=== PATIENT | female | born 1990 | race Caucasian/White ===

== ENCOUNTER 2017-06-30 22:24 | Emergency (ER) | payer MEDICAID ==
[2017-06-30 22:41] VITALS: TEMP 97.7
--- NOTE | 2017-06-30 22:48 | ED PDOC ---
Lower Extremity Pain/Injury Time Seen by Provider: 06/30/17 22:47 Chief Complaint (Nursing): Lower Extremity Problem/Injury Chief Complaint (Provider): leg pain History Per: Patient Additional Complaint(s): 27-year-old female with history of chronic left hip pain presents with exacerbation of pain that started today. Patient has had chronic pain to left hip for over 5 years. She denies recent trauma or injury. Patient took dose of Naprosyn earlier but this did not help which prompted ED visit. PMD: none Past Medical History Reviewed: Historical Data, Nursing Documentation, Vital Signs Vital Signs: Last Vital Signs Temp 97.7 F 06/30/17 22:37 Pulse 74 06/30/17 22:37 Resp 18 06/30/17 22:37 BP 173/105 H 06/30/17 22:37 Pulse Ox 100 06/30/17 22:37 - Medical History PMH: Chronic Pain (left hip) - Surgical History Surgical History: No Surg Hx - Family History Family History: States: No Known Family Hx - Living Arrangements Living Arrangements: With Family - Social History Current smoker - smoking cessation education provided: No Alcohol: None Drugs: Denies - Home Medications Home Medications: Ambulatory Orders Medication Instructions Recorded Meloxicam [Mobic] 15 mg PO DAILY #30 tab 06/30/17 predniSONE [Prednisone] 20 mg PO BID #10 tab 06/30/17 - Allergies Allergies/Adverse Reactions: Allergies Allergy/AdvReac Type Severity Reaction Status Date / Time No Known Allergies Allergy Verified 06/30/17 22:37 Wells Criteria for PE - Wells Criteria for Pulmonary Embolism Clinical Signs and Symptoms of DVT: No P.E is #1 Diagnosis, or Equally Likely: No Heart Rate >100: No Immobilization at least 3 days;Surgery previous 4 weeks: No Previous, objectively diagnosed PE or DVT: No Hemoptysis: No Malignancy w/treatment within 6 months, or palliative: No Total Score: 0 Review of Systems ROS Statement: Except As Marked, All Systems Reviewed And Found Negative Constitutional: Negative for: Fever Musculoskeletal: Positive for: Other (Left hip pain) Physical Exam - Reviewed Nursing Documentation Reviewed: Yes Vital Signs Reviewed: Yes - Physical Exam Appears: Positive for: Well, Non-toxic, No Acute Distress Skin: Negative for: Rash Eye Exam: Positive for: Normal appearance Neck: Positive for: Normal Back: Positive for: Normal Inspection. Negative for: Vertebral Tenderness Extremity: Positive for: Other (Mild tenderness left lateral hip with full range of motion, no swelling, erythema or ecchymosis, normal distal sensation left lower extremity) Neurologic/Psych: Positive for: Alert, Oriented, Gait (steady) - ECG O2 Sat by Pulse Oximetry: 100 Pulse Ox Interpretation: Normal Medical Decision Making Medical Decision Makin-year-old female with chronic left hip pain Patient declined medication for pain in ED. Patient given prescriptions for prednisone and Mobic. 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 Disposition - Clinical Impression Clinical Impression: Chronic left hip pain - Patient ED Disposition Is Patient to be Admitted: No Counseled Patient/Family Regarding: Diagnosis, Need For Followup, Rx Given - Disposition Referrals: Perry Kim MD [Medical Doctor] - Disposition: Routine/Home Disposition Time: 23:20 Condition: STABLE Additional Instructions: Take prescription medications as directed. Follow-up with orthopedist for further evaluation of chronic left hip pain. Prescriptions: Meloxicam [Mobic] 15 mg PO DAILY #30 tab predniSONE [Prednisone] 20 mg PO BID #10 tab Instructions: Chronic Pain (DC), Hip Pain Forms: [employer] ([employer])
[2017-06-30 23:26] VITALS: BP 142/85; PULSE 75; RESP 16; O2SAT 99
== END 2017-07-01 00:06 | disposition home or self-care (01) ==
LOC: H.ER 22:24
DX: M25.552 Pain in left hip (principal); G89.29 Other chronic pain